=== PATIENT | female | born 1970 | race Caucasian/White ===

== ENCOUNTER 2018-09-13 20:19 | Emergency (ER) | payer OTHER ==
[~2018-09-13] VITALS: Ht 154.9 cm; Wt 54.4 kg
[~2018-09-13 20:19] MED LIST: BENADRYL50 MG PO; CEFADROXIL500 MG PO; CIPRO500 MG PO; CLONAZEPAM1 MG; DOXYCYCLINE HY100 M1 PO; INTESTINEX1 CA1 PO; KETO10TA2 PO; ORASEP SPRAY30 ML MM; RESTORIL7.5 MG; SYMBYAX
[2018-09-13] MEDS ORDERED: EFFEXOR XR75 MG (21:05)
[2018-09-13] MEDS ORDERED: SIMVASTATIN20 MG (21:05)
[2018-09-13] MEDS ORDERED: SINGULAIR10 MG (21:06)
[2018-09-13] MEDS ORDERED: SYNTHROID88 MCG (21:06)
[2018-09-13] MEDS ORDERED: WELLBUTRIN SR150 MG (21:06)
[2018-09-13] MEDS ORDERED: SEROQUEL50 MG (21:06)
[2018-09-13] MEDS ORDERED: PEPCID20 MG (21:06)
[2018-09-13] MEDS ORDERED: PRILOSEC OTC20 MG (21:07)
[2018-09-13] MEDS ORDERED: FLONASE16 GM (21:07)
== END 2018-09-14 07:36 | disposition home or self-care (01) ==
LOC: ER 20:19
DX: S01.81XA Laceration without foreign body of other part of head, initial encounter (principal); S40.819A Abrasion of unspecified upper arm, initial encounter; S40.811A Abrasion of right upper arm, initial encounter; S39.012A Strain of muscle, fascia and tendon of lower back, initial encounter; W01.118A Fall on same level from slipping, tripping and stumbling with subsequent striking against other sharp object, initial encounter; Y93.01 Activity, walking, marching and hiking; Y92.012 Bathroom of single-family (private) house as the place of occurrence of the external cause; Y99.8 Other external cause status

== ENCOUNTER 2021-09-05 15:09 | Emergency (ER) | payer OTHER ==
[~2021-09-05] VITALS: Ht 154.9 cm; Wt 59.0 kg
[~2021-09-05 15:09] MED LIST changes: +EFFEXOR XR75 MG; +FLONASE16 GM; +PEPCID20 MG; +PRILOSEC OTC20 MG; +SEROQUEL50 MG; +SIMVASTATIN20 MG; +SINGULAIR10 MG; +SYNTHROID88 MCG; +WELLBUTRIN SR150 MG
[2021-09-05] MEDS ORDERED: RESTORIL30 M1 PO (15:49)
[2021-09-05] MEDS ORDERED: PAMELOR25 MG (15:49)
[2021-09-05] MEDS ORDERED: SEROQUEL XR200 MG PO (15:49)
[2021-09-05] MEDS ORDERED: CLONAZEPAM1 MG PO (15:50)
== END 2021-09-05 19:25 | disposition home or self-care (01) ==
LOC: ER 15:09
DX: A49.3 Mycoplasma infection, unspecified site (principal); Z20.822 Contact with and (suspected) exposure to COVID-19

== ENCOUNTER 2022-11-24 23:10 | Emergency (ER) | payer OTHER ==
[~2022-11-24] VITALS: Ht 165.1 cm; Wt 65.8 kg
[~2022-11-24 23:10] MED LIST changes: +CLONAZEPAM1 MG PO; +PAMELOR25 MG; +RESTORIL30 M1 PO; +SEROQUEL XR200 MG PO
[2022-11-25 01:41] LABS: HEMATOCRIT 43.7 % (36.0-45.00); HEMOGLOBIN 14.2 g/dL (12.0-15.00); MEAN CELL VOLUME 97.5 fL (80.00-100.00); MEAN CORPUSCULAR HEMOGLOBIN 31.7 pg (27.00-32.0); MEAN CORPUSCULAR HGB CONC 32.5 g/dl (32.0-36.0); PLATELET COUNT 275 K/uL (150-450); RED BLOOD COUNT 4.48 M/uL (4.00-6.00)
[2022-11-25 02:04] LABS: POTASSIUM 4.79 mEq/L (3.5-5.1)
[2022-11-25 05:32] LABS: PH,URINE 7.5 (5.0-8.0); URINE APPEARANCE Clear; URINE BILIRRUBIN Negative (NEGATIVE); URINE BLOOD Negative; URINE COLOR Yellow; URINE GLUCOSE Negative (NEGATIVE); URINE LEUKOCYTE Negative; URINE NITRATE Negative; URINE PROTEIN Negative (NEGATIVE)
[2022-11-25 05:35] LABS: URINE BACTERIA 142.3 uL (0.0-1933); URINE EPITHELIAL CELLS 10.5 uL (0.0-38.8); URINE RBC 37.5 uL (0.0-20.8); URINE WBC 16.6 uL (0.0-23.2)
== END 2022-11-25 07:45 | disposition home or self-care (01) ==
LOC: ER 23:10
DX: K59.01 Slow transit constipation (principal); K80.20 Calculus of gallbladder without cholecystitis without obstruction
CPT/HCPCS: 36415; 74176; 96372; 99284; J1885; J2250; J3490

== ENCOUNTER 2022-11-27 20:51 | Inpatient (IN) | payer OTHER ==
[~2022-11-27] VITALS: Ht 154.9 cm; Wt 59.0 kg
--- NOTE | 2022-11-27 21:02 | NUR ---
SE RECIBE PACIENTE ALERTA Y ORIENTADA X3, EN AMBULACIA LA MISMA REFIERE TENER DOLOR ABDOMINAL. SE MONITORENA VS Y SE UBICA
[2022-11-27 21:55] LABS: HEMATOCRIT 39.2 % (36.0-45.00); HEMOGLOBIN 13.2 g/dL (12.0-15.00); MEAN CORPUSCULAR HEMOGLOBIN 32.6 pg (27.00-32.0); MEAN CORPUSCULAR HGB CONC 33.6 g/dl (32.0-36.0); PLATELET COUNT 251 K/uL (150-450); RED BLOOD COUNT 4.04 M/uL (4.00-6.00); RED CELL DISTRIBUTION WIDTH 14.2 % (11.5-14.5)
--- NOTE | 2022-11-27 22:01 | NUR ---
SE ORIENTA PTE SOBRE TX SEGUIR, EL CUAL REFIERE ENTENDER. SE COLECTAN MUESTRAS Y SE CANALIZA PTE UTILIZANDO MEDIDAS ASEPTICAS. SE ADM. MEDICAMENTOS GIL ORDEN MEDICA BAJO MEDIDAS ASEPTICAS. SE HACE ENTREGA DE ENVASE PARA MUESTRA DE UA PEND Y SE ORIENTA SOBRE CONTRASTE PO PARA CT ABD/PEL PEND.
[2022-11-27 22:15] LABS: CALCIUM 9.2 mg/dL (8.5-10.1); CREATININE SERUM 1.15 mg/dL (0.55-1.02); GFR 49.36; POTASSIUM 4.25 mEq/L (3.5-5.1)
[2022-11-28 00:52] LABS: URINE APPEARANCE Cloudy; URINE BILIRRUBIN Negative (NEGATIVE); URINE BLOOD Small; URINE COLOR Yellow; URINE GLUCOSE Negative (NEGATIVE); URINE LEUKOCYTE Large; URINE NITRATE Negative; URINE PROTEIN Negative (NEGATIVE); URINE UROBILINOGEN 0.2 E.U./dl
[2022-11-28 00:55] LABS: URINE BACTERIA 333.8 uL (0.0-1933); URINE EPITHELIAL CELLS 26.7 uL (0.0-38.8); URINE RBC 34.2 uL (0.0-20.8); URINE WBC 609.9 uL (0.0-23.2)
--- NOTE | 2022-11-28 02:33 | NUR ---
SE ADMINISTRA MEDICAMENTO GIL ORDEN MEDICA.
--- NOTE | 2022-11-28 05:22 | NUR ---
SE INSERTA TUBO NGT EN FOSSA DERECHA A PTE, SE CONTUBO TUBO NGT A SUCCION INTERMITENTE. SE AUSCULTA TUBO NGT EN [place]OM[place], NO SE OBSERVA RESIDUAL GASTRICO.
--- NOTE | 2022-11-28 07:03 | NUR ---
PTE ALERTA Y OREINTADA X3 SE MANTIENE BAJO OBSERVACION CON UN 0.9NSS PATENTE, PENDIENTE CONSULTA
[2022-11-28 11:27] LABS: HEMATOCRIT 34.8 % (36.0-45.00); MEAN CELL VOLUME 95.5 fL (80.00-100.00); MEAN CORPUSCULAR HEMOGLOBIN 32.8 pg (27.00-32.0); MEAN CORPUSCULAR HGB CONC 34.4 g/dl (32.0-36.0); PLATELET COUNT 212 K/uL (150-450); RED BLOOD COUNT 3.65 M/uL (4.00-6.00); RED CELL DISTRIBUTION WIDTH 14.5 % (11.5-14.5)
--- NOTE | 2022-11-28 13:01 | NUR ---
SE REMUEVE NGT POR ORDEN DE MARGI [place].
[2022-11-29 06:22] LABS: HEMATOCRIT 30.2 % (36.0-45.00); HEMOGLOBIN 10.2 g/dL (12.0-15.00); MEAN CELL VOLUME 96.6 fL (80.00-100.00); MEAN CORPUSCULAR HEMOGLOBIN 32.7 pg (27.00-32.0); MEAN CORPUSCULAR HGB CONC 33.8 g/dl (32.0-36.0); PLATELET COUNT 182 K/uL (150-450); RED BLOOD COUNT 3.13 M/uL (4.00-6.00); RED CELL DISTRIBUTION WIDTH 13.6 % (11.5-14.5)
[2022-11-29 06:45] LABS: ALBUMIN 2.6 gm/dL (3.4-5.0); BILIRUBIN TOTAL 0.15 mg/dL (0.3-1.2); CALCIUM 7.8 mg/dL (8.5-10.1); CREATININE SERUM 0.9 mg/dL (0.55-1.02); GFR 65.5; GLOBULINA 2.8 G/DL (2.4-3.5); MAGNESIUM 2.4 mg/dL (1.8-2.4); PHOSPHOROUS 4.1 mg/dL (2.5-4.9); POTASSIUM 4.39 mEq/L (3.5-5.1); TOTAL PROTEIN 5.4 gm/dL (6.4-8.2)
[2022-11-29 06:56] LABS: ERYTHROCYTE SEDIMENTATION RATE 33 mm/hr
[2022-11-29 07:07] LABS: C-REACTIVE PROTEIN 13.1 MG/DL (0.00-0.29)
[2022-11-29 19:25] LABS: HEMATOCRIT 26.8 % (36.0-45.00); HEMOGLOBIN 9.3 g/dL (12.0-15.00); MEAN CORPUSCULAR HEMOGLOBIN 33.2 pg (27.00-32.0); MEAN CORPUSCULAR HGB CONC 34.5 g/dl (32.0-36.0); PLATELET COUNT 178 K/uL (150-450); RED BLOOD COUNT 2.79 M/uL (4.00-6.00); RED CELL DISTRIBUTION WIDTH 14.1 % (11.5-14.5)
[2022-11-30 12:06] LABS: INR 0.98; PARTIAL THROMBOPLASTIN TIME 29.7 SECONDS (22.0-34.0); PROTHROMBIN TIME 10.3 SECONDS (9.0-11.5)
[2022-11-30 15:07] LABS: HEMATOCRIT 29.8 % (36.0-45.00); HEMOGLOBIN 9.5 g/dL (12.0-15.00); RED BLOOD COUNT 3.06 M/uL (4.00-6.00)
[2022-11-30 16:17] LABS: HEMATOCRIT 29.9 % (36.0-45.00); HEMOGLOBIN 9.6 g/dL (12.0-15.00); MEAN CELL VOLUME 97.6 fL (80.00-100.00); MEAN CORPUSCULAR HEMOGLOBIN 31.3 pg (27.00-32.0); MEAN CORPUSCULAR HGB CONC 32.1 g/dl (32.0-36.0); PLATELET COUNT 241 K/uL (150-450); RED BLOOD COUNT 3.06 M/uL (4.00-6.00); RED CELL DISTRIBUTION WIDTH 13.8 % (11.5-14.5)
[2022-11-30 16:33] LABS: ABG PH 7.496 (7.35-7.45); ABG PO2 380.1 mmHg (80-100); BASE EXCESS 4.1 mmol/l; BICARBONATE 27.2 mmol/l (23-25); Tco2 28.3 mmol/l
[2022-11-30 16:35] LABS: CALCIUM 8.5 mg/dL (8.5-10.1); CREATININE SERUM 0.76 mg/dL (0.55-1.02); GFR 79.61; POTASSIUM 3.79 mEq/L (3.5-5.1)
[2022-11-30 16:42] LABS: allen test SATISFACTORY; o2 100 %; puncture site RADIAL RIGHT
[2022-12-01 08:44] LABS: CALCIUM 8.3 mg/dL (8.5-10.1); CREATININE SERUM 0.71 mg/dL (0.55-1.02); GFR 86.11; POTASSIUM 3.97 mEq/L (3.5-5.1)
[2022-12-01 08:47] LABS: HEMATOCRIT 25.9 % (36.0-45.00); MEAN CELL VOLUME 95.5 fL (80.00-100.00); MEAN CORPUSCULAR HEMOGLOBIN 32.8 pg (27.00-32.0); MEAN CORPUSCULAR HGB CONC 34.4 g/dl (32.0-36.0); PLATELET COUNT 221 K/uL (150-450); RED BLOOD COUNT 2.71 M/uL (4.00-6.00); RED CELL DISTRIBUTION WIDTH 13.8 % (11.5-14.5)
[2022-12-01 08:48] LABS: HEMOGLOBIN 8.9 g/dL (12.0-15.00)
[2022-12-02 08:50] LABS: HEMATOCRIT 32.4 % (36.0-45.00); HEMOGLOBIN 10.7 g/dL (12.0-15.00); MEAN CELL VOLUME 96.8 fL (80.00-100.00); MEAN CORPUSCULAR HEMOGLOBIN 32.1 pg (27.00-32.0); MEAN CORPUSCULAR HGB CONC 33.1 g/dl (32.0-36.0); PLATELET COUNT 339 K/uL (150-450); RED BLOOD COUNT 3.35 M/uL (4.00-6.00); RED CELL DISTRIBUTION WIDTH 13.8 % (11.5-14.5)
== END 2022-12-02 15:45 | disposition home or self-care (01) | DRG 743 ==
LOC: ER 20:51 → MEDI 11-28 17:55
PROVIDERS: Emergency Medicine; Obstetrics & Gynecology; ADMIT Internal Medicine; ATTEND Internal Medicine
PROC: BW21ZZZ Computerized Tomography (CT Scan) of Abdomen and Pelvis (ICD-10-PCS; 2022-11-27)
PROC: BW40ZZZ Ultrasonography of Abdomen (ICD-10-PCS; 2022-11-28)
PROC: BU4CZZZ Ultrasonography of Uterus and Ovaries (ICD-10-PCS; 2022-11-28)
PROC: 0UT74ZZ Resection of Bilateral Fallopian Tubes, Percutaneous Endoscopic Approach (ICD-10-PCS; 2022-11-30)
PROC: 4A12X4Z Monitoring of Cardiac Electrical Activity, External Approach (ICD-10-PCS; 2022-11-30)
PROC: 3E1M48Z Irrigation of Peritoneal Cavity using Irrigating Substance, Percutaneous Endoscopic Approach (ICD-10-PCS; 2022-11-30)
PROC: 0UB04ZZ Excision of Right Ovary, Percutaneous Endoscopic Approach (ICD-10-PCS; principal; 2022-11-30 11:00)
DX: N83.511 Torsion of right ovary and ovarian pedicle (principal); N83.291 Other ovarian cyst, right side; E03.8 Other specified hypothyroidism; F32.9 Major depressive disorder, single episode, unspecified; R10.2 Pelvic and perineal pain